=== PATIENT | male | born 2000 | race Caucasian/White ===

== ENCOUNTER 2025-03-25 12:35 | Emergency (ER) | payer OTHER, SELFPAY ==
--- NOTE | ~2025-03-25 | XR_ITS ---
EXAMINATION: XR FOREARM, LEFT CLINICAL INFORMATION: hit forearm w/ steel jerry COMPARISON: None available. TECHNIQUE: AP and lateral views of the left forearm were obtained. FINDINGS: The bones and soft tissues are normal. No fracture line is evident.. Imaged portions of the elbow and wrist are unremarkable. XR/XR forearm LT 2V IMPRESSION: No acute abnormality. Electronically signed by: Flaco Juarez MD 03/25/2025 01:29 PM EDT
[2025-03-25 12:58] VITALS: BP 121/70; PULSE 75; RESP 16; TEMP 36; O2SAT 99; BMI 27.2
--- NOTE | 2025-03-25 14:14 | ED.EXTPRO ---
HPI - Extremity Problem General Chief complaint: Extremity Injury, Upper Stated complaint: Left Arm Injury Time Seen by Provider: 03/25/25 13:58 Source: patient Mode of arrival: ambulatory Limitations: no limitations History of Present Illness ED Provider: APARNA ELIAS PA-C HPI Narrative: 24 year old male presents to the ED today for evaluation of left forearm pain after hitting the arm on a steel jerry 3 days ago. States this occured while he was cleaning his car. No other injury. No head strike or LOC. Not on thinners. Reports pain is 0/10 at rest, 5/10 with movement. No radiation. Pain has been improving since onset. Reports bruising to the area. Denies numbness/tingling/weakness. He denies any OTC pain medications. Related Data Allergies Allergy/AdvReac Type Severity Reaction Status Date / Time No Known Allergies Allergy Verified 03/25/25 12:59 Review of Systems Review of Systems: Constitutional: No fever, chills, fatigue, night sweats, weight changes ENT/Mouth: No ear pain, hearing loss, nasal congestion, sinus pain, rhinorrhea, sore throat Eyes: No eye pain, swelling, redness, vision changes, discharge Cardio: No chest pain, palpitations, ESTRELLA, orthopnea, peripheral edema Pulm: No SOB, cough, sputum, wheezing, dyspnea, hemoptysis GI: No nausea, vomiting, hematemesis, abdominal pain, diarrhea, constipation, hematochezia, melena : No irregular bleeding, dysuria, frequency, urgency, hesitancy, hematuria, flank pain, urinary flow changes, urinary incontinence or retention MSK: No back pain, neck pain, joint pain, myalgias, +left forearm pain Skin: No lesions, rashes Neuro: No weakness, numbness, paresthesias, LOC, dizziness, headache Psych: No anxiety/panic, depression, SI/HI, AH/VH All other systems reviewed and are negative. FOR[facility]LY [facility], [facility] Past Medical History Attestation statement: The following information was validated with the patient. Source: old records reviewed and nursing notes reviewed Social History Social History Do you have a plan to hurt others: No Plan Physical Exam Vital Signs: Vital Signs: Last Vital Signs Temp 96.8 F 03/25/25 12:58 Pulse 75 03/25/25 12:58 Resp 16 03/25/25 12:58 BP 121/70 03/25/25 12:58 Pulse Ox 99 03/25/25 12:58 O2 Del Method Room Air 03/25/25 12:58 BMI result Body Mass Index 27.2 Vital signs stable, afebrile. General: Well appearing, in no acute distress. Skin: Warm, dry, intact. No rashes or lesions. Head: Normocephalic, atraumatic. EENT: Hearing is intact b/l. Conjunctiva clear. PERRLA. EOM intact. Moist mucous membranes.? Cardiac: Chest wall symmetric. RRR Lungs: Normal respiratory effort without accessory muscle use Ext: +small, circular area of healing ecchymosis noted to dorsal aspect of left forearm. No noted tenderness. No obvious swelling. Full ROM intact to left elbow, wrist and all digits. 2+ radial pulse intact. compartments soft. Neuro: AOx3. Normal speech. Ambulating with steady gait. Course Course Course Narrative: xrs normal. likely contusion. advised heat/ice, tylenol, motrin. declining pain meds in ED. Patient has remained stable throughout ED visit today. Discussed worrisome signs and symptoms and when to return to the ED. All questions answered at this time. Patient is agreeable with disposition and stable for discharge. Medical Decision Making Medical Decision Making MDM Narrative: 24 year old male presents to the ED today for evaluation of left forearm pain after hitting the arm on a steel jerry 3 days ago. vital signs stable. he is well appearing, in NAD. on exam, small, circular area of healing ecchymosis noted to dorsal aspect of left forearm. No noted tenderness. No obvious swelling. Full ROM intact to left elbow, wrist and all digits. 2+ radial pulse intact. compartments soft. Differential diagnosis includes contusion, bruise, MSK sprain/strain. Lower suspicion for fracture, hematoma, intramuscular hematoma, compartment syndrome, neurovascular compromise, threat to limb. Plan for imaging and disposition. Differential Diagnosis Differential Diagnoses: The differential diagnosis associated with the presentation includes As above Admission/Observation Not indicated Independent Interpretation I performed an independent interpretation of an: Plain X-Ray Interpretation: xrs left forearm w/o fracture Radiology Impression Discussion of test interpretation with radiology: I have reviewed the radiologist's reading. Radiologist Impression: Date of Service: 03/25/25 Procedure(s): XR forearm LT 2V Accession Number(s): [id number] cc: MANISHA BEATTY MD; Aparna Elias~ EXAMINATION: XR FOREARM, LEFT CLINICAL INFORMATION: hit forearm w/ steel jerry COMPARISON: None available. TECHNIQUE: AP and lateral views of the left forearm were obtained. FINDINGS: The bones and soft tissues are normal. No fracture line is evident.. Imaged portions of the elbow and wrist are unremarkable. XR/XR forearm LT 2V IMPRESSION: No acute abnormality. Electronically signed by: Flaco Juarez MD 03/25/2025 01:29 PM EDT RP Prescription Management I considered prescription management with: Pain Medication Social Determinants Patient?s care significantly limited by Social Determinants of Health including: Other Social Determinant of Health Critical Care Time Critical Care Time Critical Care Time: No Discharge Plan Discharge Clinical Impression: Contusion of forearm, left Patient Disposition: Home, Self-Care Instructions: Contusion in Adults (ED) Additional Instructions: You were evaluated in the ED today for left forearm pain. Your xrays are normal. You have a contusion. You may ice/heat the area for 20 minutes at a time. I recommend you take 600mg ibuprofen every 6 hours or Tylenol 650mg every 6 hours as needed for pain. If needed, you can alternate these medications so that you take one medication every 3 hours. For example, at noon take ibuprofen, then at 3pm take Tylenol, then at 6pm take ibuprofen. Return with any new or worsening symptoms. In the case of an emergency call 911.. Referrals: Manisha Beatty MD [Primary Care Provider, Internal Medicine] Print Language: Eritrean
[2025-03-25 14:45] VITALS: BP 121/70; PULSE 75; RESP 16; TEMP 36; O2SAT 99
--- OUTSIDE RECORDS SUMMARY | 2025-03-25 15:58 | XMS_ITS | Patient Health Record ---
Author Organization [facility] [place] Address [address] [place] [address] Support Name Relationship Address Phone Lino Pierson Guarantor Unknown Unavailable Reason For Referral No Information Plan Of Treatment No Information Insurance Providers Payer Name Payer Address Payer Phone Subscriber Number Group Number Insured Name Patient Relationship to Insured Coverage Start Date Coverage End Date [facility] [id number] [place] [id number] Lino Pierson Self - patient is the insured
== END 2025-03-25 14:50 | disposition home or self-care (01) ==
PROVIDERS: Emergency Provider Emergency Medicine; PCP Internal Medicine
DX: S50.12XA Contusion of left forearm, initial encounter (principal); W22.8XXA Striking against or struck by other objects, initial encounter; Y93.9 Activity, unspecified; Y92.9 Unspecified place or not applicable; Y99.9 Unspecified external cause status; M79.632 Pain in left forearm
CPT/HCPCS: 73090; 99282; 99283

== ENCOUNTER → 2025-03-25 13:03 | Outpatient (BNV) | payer OTHER, SELFPAY | PROVIDERS: Emergency Provider Emergency Medicine; PCP Internal Medicine; Visit Provider Radiology Diagnostic Radiology | DX: S49.92XA Unspecified injury of left shoulder and upper arm, initial encounter (principal); W22.09XA Striking against other stationary object, initial encounter | CPT/HCPCS: 73090 ==